=== PATIENT | female | born 1945 | race Caucasian/White ===

== ENCOUNTER 2016-06-09 17:58 | Emergency (ER) | payer MEDICARE, OTHER ==
[2016-06-09] MEDS ORDERED: DIPHENHYDRAMINE 25 MG CAPSULE PO ONE (18:32)
[2016-06-09] MEDS ORDERED: FAMOTIDINE 20 MG TABLET ONE (18:33)
[2016-06-09] MEDS ORDERED: IPRATROPIUM/ALBUTEROL 0.5/3 MG 3 ML AMPUL.NEB INHALATION ONE (18:39)
--- NOTE | 2016-06-09 19:03 | ER PHYSICIAN DOCUMENTATION ---
Physician Documentation [facility] Name:Adele Quarles Age:70 yrs Sex:Female :1945 Arrival Date:06/09/2016 Time:17:58 Bed1 Private MD: Cristino Hernandez Disposition: 06/09/16 18:40 Discharged to Home/Self Care. Impression: Acute Allergic Reaction. - Condition is Good. - Discharge Instructions: ALLERGIC REACTION, Other (Local). - Prescriptions for Prednisone 20 mg Oral Tablet - take 2 tablet by ORAL route once daily for 5 days; 10 tablet. - Medical Reconciliation form form. - Follow up: Private Physician; When: As needed; Reason: Continuance of care. - Problem is new. - Symptoms have improved. HPI: 06/09 18:36 This 70 yrs old Female presents to ER via Walk In with complaints of Allergic jm Reaction. 18:36 The patient presents with rash, that is diffuse. Onset: The symptom(s)/episode jm began/occurred yesterday, and became worse today. Associated signs and symptoms: Pertinent negatives: dysphagia, Light headed nausea, shortness of breath, vomiting. Possible causes: The patient has no known obvious cause for the symptoms. At home the patient or guardian has treated the symptoms with Benadryl. The patient has not experienced similar symptoms in the past. Historical: - Allergies: Ceclor; Bactrim; - Home Meds: 1. atorvastatin oral 2. Metoprolol Tartrate Oral 3. Zetia Oral 4. Lipitor Oral 5. Nexium Oral 6. paroxetine HCl oral 7. Synthroid Oral 8. aspirin 81 mg oral tab 1 tab once daily 9. Glipizide Oral - PMHx: Diabetes - NIDDM; Hypertension; CAD; HYPOTHYROIDISM; - PSHx: CABG; Carotid surgery; Cholecysectomy; - Ebola Screening: : Patient negative for fever greater than or equal to 101.5 degrees Fahrenheit, and additional compatible Ebola Virus Disease symptoms. Patient denies exposure to infectious person. Patient denies travel to an Ebola-affected area in the 21 days before illness onset. No symptoms or risks identified at this time. . - Immunization history: Pneumococcal vaccine is up to date, Flu Vaccine < 1 year. - Social history: Smoking status: Patient states was never smoker of tobacco. Patient/guardian denies using alcohol, street drugs, IV drugs, marijuana. ROS: 18:36 ENT: Negative for difficulty swallowing, difficulty handling secretions, hoarseness. 18:36 Cardiovascular: Negative for chest pain. 18:36 Respiratory: Negative for cough, shortness of breath. 18:36 Skin: Positive for rash, diffusely. Exam: 18:37 Constitutional: The patient appears in no acute distress, alert, awake, obese. 18:37 ENT: Posterior pharynx: is normal, swelling, is not appreciated. 18:37 Cardiovascular: Rate: normal, Rhythm: regular. 18:37 Respiratory: Breath sounds: are normal, wheezing, that is mild. 18:37 Skin: cellulitis, is not appreciated, rash a moderate rash is noted, urticaria, and is diffusely located. 18:37 Psych: Behavior/mood is pleasant, Affect is calm. Vital Signs: 18:38 BP 133 / 50; Pulse 61; Resp 18; Temp 98.2; Pulse Ox 91% on R/A; sc1 18:57 BP 124 / 50; Pulse 63; Resp 16; Pulse Ox 98% on R/A; sc1 MDM: 18:28 Patient medically screened. 18:37 Differential diagnosis: anaphylaxis, urticaria. Data reviewed: vital signs, nurses notes, and as a result, I will discharge patient. Counseling: I had a detailed discussion with the patient and/or guardian regarding: the historical points, exam findings, and any diagnostic results supporting the discharge/admit diagnosis, the need for outpatient follow up, with the patient's primary care provider. Medication response: The patient's symptoms have improved. ED course: Pt w mild wheezes and obvious horrible urticarial itchy rash. Unknown exposure, but pt given above meds and felt better upon DC. Pt given steroids fro 5 days. . 06/09 18:36 Order name: Pulse Ox Continuous; Complete Time: 18:39 Dispensed Medications: 18:30 Drug: predniSONE 40 mg; Route: PO; sc1 19:00 Follow up: Response: No adverse reaction sd1 18:30 Drug: Benadryl 25 mg; Route: PO; sc1 19:01 Follow up: Response: No adverse reaction sd1 18:30 Drug: Pepcid 20 mg; Route: PO; sc1 19:01 Follow up: Response: No adverse reaction [facility] 18:39 Drug: DuoNeb (Albuterol 2.5 mg, Atrovent 0.5 mg); 3 ml; Route: Nebulizer; [facility] 19:00 Follow up: Response: No adverse reaction [facility] Signatures: Dolly Soriano RN RN sc1 Cristino Goodrich MD MD jm
--- NOTE | 2016-06-09 19:03 | ER NURSING DOCUMENTATION ---
Nurse's Notes [facility] Name:Adele Quarles Age:70 yrs Sex:Female :1945 Arrival Date:06/09/2016 Time:17:58 Bed1 Private MD: Diagnosis:Acute Allergic Reaction Presentation: 06/09 18:06 Transition of care: patient was not received from another setting of care. nf 18:06 Acuity: OTIS 3 nf 18:06 Method Of Arrival: Walk In nf 18:36 Presenting complaint: Patient states: Itching, rash and wheezing off and on since sc1 yesterday morning. Onset: The symptoms/episode began/occurred acutely, yesterday. Anaphylaxis evaluation, the patient reports or I have noted the following symptoms which indicate a significant risk of anaphylaxis: shortness of breath urticaria. Notified ED Physician of [facility] [place] notified. Triage Assessment: 18:37 General: Appears uncomfortable, well developed, well nourished, well groomed, Behavior sc1 is cooperative, pleasant. Pain: Denies pain. Historical: - Allergies: Ceclor; Bactrim; - Home Meds: 1. atorvastatin oral 2. Metoprolol Tartrate Oral 3. Zetia Oral 4. Lipitor Oral 5. Nexium Oral 6. paroxetine HCl oral 7. Synthroid Oral 8. aspirin 81 mg oral tab 1 tab once daily 9. Glipizide Oral - PMHx: Diabetes - NIDDM; Hypertension; CAD; HYPOTHYROIDISM; - PSHx: CABG; Carotid surgery; Cholecysectomy; - Ebola Screening: : Patient negative for fever greater than or equal to 101.5 degrees Fahrenheit, and additional compatible Ebola Virus Disease symptoms. Patient denies exposure to infectious person. Patient denies travel to an Ebola-affected area in the 21 days before illness onset. No symptoms or risks identified at this time. . - Immunization history: Pneumococcal vaccine is up to date, Flu Vaccine < 1 year. - Social history: Smoking status: Patient states was never smoker of tobacco. Patient/guardian denies using alcohol, street drugs, IV drugs, marijuana. Screenin:39 Infectious Disease Risk None. Abuse screen: Denies threats or abuse. Nutritional sc1 screening: No deficits noted. Assessment: 18:58 Respiratory: Airway is patent Respiratory effort is even, unlabored, Breath sounds with sc1 crackles in right posterior lower lobe. Vital Signs: 18:38 BP 133 / 50; Pulse 61; Resp 18; Temp 98.2; Pulse Ox 91% on R/A; sc1 18:57 BP 124 / 50; Pulse 63; Resp 16; Pulse Ox 98% on R/A; pa1 ED Course: 17:59 Patient arrived in ED. ama 18:06 Triage completed. nf 18:17 Dolly Soriano RN is Primary Nurse. [facility] 18:27 Cristino Goodrich MD is Attending Physician. sravan 18:38 Notified ED Physician of patient's arrival and chief complaint. Dr. Goodrich notified. Arm pa1 band placed on Bed in low position Call Light in Reach Gowned HOB Elevated Side rails up x1. 19:00 Valuables Remains with patient. [facility] Administered Medications: 18:30 Drug: predniSONE 40 mg; Route: PO; pa1 19:00 Follow up: Response: No adverse reaction [facility] [place] 18:30 Drug: Benadryl 25 mg; Route: PO; pa1 19:01 Follow up: Response: No adverse reaction [facility] 18:30 Drug: Pepcid 20 mg; Route: PO; pa1 19:01 Follow up: Response: No adverse reaction [facility] [place] 18:39 Drug: DuoNeb (Albuterol 2.5 mg, Atrovent 0.5 mg); 3 ml; Route: Nebulizer; [facility] 19:00 Follow up: Response: No adverse reaction [facility] Outcome: 18:40 Discharge ordered by . sravan 18:57 Discharged to home ambulatory. [facility] 18:57 Condition: stable 18:57 Discharge instructions given to patient, Instructed on discharge instructions, follow up and referral plans. medication usage, Demonstrated understanding of instructions, medications, Prescriptions given X 1. 19:02 Patient left the ED. [facility] 06/10 14:11 Discharge F/U Call: Spoke with: patient. Have you filled your prescriptions? yes. Did [facility] your discharge instructions answer all of your questions? yes Have you made a f/u appointment? No. Overall Care on a scale of 1-10 with 10 being the best care, you rate our care as: the rating of 10. Signatures: Dolly Soriano RN RN [facility] Roxanna Tierney RN RN nf Meyer, John, MD MD jm Averdick, Andrew, Reg Reg ama
== END 2016-06-09 19:03 | disposition home or self-care (01) ==
LOC: ER 17:58
DX: L50.0 Allergic urticaria (principal); R06.2 Wheezing; I10 Essential (primary) hypertension; E11.9 Type 2 diabetes mellitus without complications; Z79.899 Other long term (current) drug therapy; Z79.82 Long term (current) use of aspirin
CPT/HCPCS: 94640; 99282; 99284; J7512; J7620; Q0163